=== PATIENT | male | born 1985 | race Caucasian/White ===

== ENCOUNTER 2017-02-14 16:12 | Emergency (ER) | payer OTHER ==
[~2017-02-14] VITALS: Wt 79.4 kg
[~2017-02-14 16:12] MED LIST: AUGMENTIN 875 M1 TAB PO; FLEXERIL10 MG PO; IBU-8800 MG PO; MOTRIN800 MG PO; TRAMADOL HCL50 MG PO; TRIMOX500 MG PO
[2017-02-14 16:46] VITALS: BP 150/78
== END 2017-02-14 20:12 | disposition home or self-care (01) ==
LOC: ED 16:12
DX: S63.91XA Sprain of unspecified part of right wrist and hand, initial encounter (principal); F17.200 Nicotine dependence, unspecified, uncomplicated; Z98.890 Other specified postprocedural states; W01.0XXA Fall on same level from slipping, tripping and stumbling without subsequent striking against object, initial encounter; Y93.89 Activity, other specified; Y92.89 Other specified places as the place of occurrence of the external cause; Y99.9 Unspecified external cause status

== ENCOUNTER 2018-02-24 15:03 | Emergency (ER) | payer OTHER ==
[~2018-02-24] VITALS: Ht 177.8 cm; Wt 84.8 kg
[2018-02-24 15:07] VITALS: BP 137/81
== END 2018-02-24 15:38 | disposition home or self-care (01) ==
LOC: ED 15:03
DX: S93.502A Unspecified sprain of left great toe, initial encounter (principal); W22.8XXA Striking against or struck by other objects, initial encounter; Y93.89 Activity, other specified; Y92.89 Other specified places as the place of occurrence of the external cause; Y99.9 Unspecified external cause status

== ENCOUNTER 2020-03-23 11:29 | Emergency (ER) | payer SELFPAY ==
[~2020-03-23] VITALS: Wt 79.4 kg
[2020-03-23 12:10] VITALS: BP 128/86
[2020-03-23] MEDS ORDERED: NORCO 5-325 TA1 EACH PO (14:39)
[2020-03-23] MEDS ORDERED: IBU800 MG PO (14:39)
== END 2020-03-23 14:48 | disposition home or self-care (01) ==
LOC: ED 11:29
DX: S62.92XA Unspecified fracture of left hand, initial encounter for closed fracture (principal); X58.XXXA Exposure to other specified factors, initial encounter; Y93.89 Activity, other specified; Y92.89 Other specified places as the place of occurrence of the external cause; Y99.8 Other external cause status

== ENCOUNTER 2020-12-02 12:10 | Emergency (ER) | payer OTHER ==
[~2020-12-02] VITALS: Ht 177.8 cm; Wt 81.6 kg
[~2020-12-02 12:10] MED LIST changes: +IBU800 MG PO; +NORCO 5-325 TA1 EACH PO
[2020-12-02 12:17] VITALS: BP 123/79
[2020-12-02] MEDS ORDERED: MEDROL DOSEPAK4 MG PO (14:23)
== END 2020-12-02 14:29 | disposition home or self-care (01) ==
LOC: ED 12:10
DX: R22.41 Localized swelling, mass and lump, right lower limb (principal); F17.200 Nicotine dependence, unspecified, uncomplicated

== ENCOUNTER 2020-12-18 15:00 | Emergency (ER) | payer OTHER ==
[~2020-12-18] VITALS: Ht 177.8 cm; Wt 79.4 kg
[~2020-12-18 15:00] MED LIST changes: +MEDROL DOSEPAK4 MG PO
[2020-12-18 15:06] VITALS: BP 122/82
[2020-12-18] MEDS ORDERED: NAPROXEN250 MG PO (15:36)
[2020-12-18] MEDS ORDERED: TYLENOL325 M1 PO (15:36)
== END 2020-12-18 15:58 | disposition home or self-care (01) ==
LOC: ED 15:00
DX: S90.01XA Contusion of right ankle, initial encounter (principal); J45.909 Unspecified asthma, uncomplicated; R56.9 Unspecified convulsions; Z98.890 Other specified postprocedural states; Z79.899 Other long term (current) drug therapy; W00.9XXA Unspecified fall due to ice and snow, initial encounter; Y93.89 Activity, other specified; Y92.89 Other specified places as the place of occurrence of the external cause; Y99.8 Other external cause status

== ENCOUNTER 2021-10-13 11:23 | Emergency (ER) | payer OTHER ==
[~2021-10-13 11:23] MED LIST changes: +NAPROXEN250 MG PO; +TYLENOL325 M1 PO
[2021-10-13 12:07] VITALS: BP 122/80
== END 2021-10-13 14:39 | disposition home or self-care (01) ==
LOC: ED 11:23
DX: S62.636A Displaced fracture of distal phalanx of right little finger, initial encounter for closed fracture (principal); W51.XXXA Accidental striking against or bumped into by another person, initial encounter; Y93.89 Activity, other specified; Y92.89 Other specified places as the place of occurrence of the external cause; Y99.8 Other external cause status

== ENCOUNTER 2022-09-16 07:53 | Emergency (ER) | payer OTHER ==
[~2022-09-16] VITALS: Ht 177.8 cm; Wt 81.6 kg
[2022-09-16 08:08] VITALS: BP 136/85
[2022-09-16 08:53] LABS: BASO # 0.1 10*3/uL (0.0-0.1); BASO % 0.6 % (0.0-1.0); EOS # 0.2 10*3/uL (0.0-0.4); LYMPH # 1.6 10*3/uL (1.3-4.4); LYMPH % 10.1 % (27.0-41.0); MEAN CELL VOLUME 91.8 fl (80.0-94.0); MEAN CORPUSCULAR HGB 31.9 pg (27.0-31.0); MEAN CORPUSCULAR HGB CONC 34.8 g/dl (33.0-37.0); MEAN PLATELET VOLUME 8.7 fl (9.6-12.3); MONO # 1.2 10*3/uL (0.1-1.0); MONO % 7.6 % (3.0-9.0); NEUT # 12.7 10*3/uL (2.3-7.9); NEUT % 80.4 % (47.0-73.0); PLATELET COUNT AUTOMATED 342 10*3/uL (130-400); RED BLOOD COUNT 5.01 10*6/uL (4.50-5.90); RED CELL DISTRI WIDTH 12.8 % (0-14.5); WHITE BLOOD COUNT 15.8 10*3/uL (4.8-10.8)
[2022-09-16 09:20] LABS: ALKALINE PHOSPHATASE 83 U/L (45-117); BUN 7 mg/dl (7-24); CHLORIDE 106 mmol/L (98-107); CREATININE 0.87 mg/dL (0.70-1.30); POTASSIUM 3.7 mmol/L (3.5-5.1); SGOT/AST 24 IU/L (3-35); SGPT/ALT 45 U/L (12-78); SODIUM 141 mmol/L (136-145); TOTAL PROTEIN 7.4 gm/dL (6.4-8.2)
[2022-09-16] MEDS ORDERED: CLINDAMYCIN HC300 MG PO (13:02)
[2022-09-18] MEDS ORDERED: AUGMENTIN 500500 M1 PO (07:29)
== END 2022-09-16 13:10 | disposition home or self-care (01) ==
LOC: ED 07:53
PROVIDERS: Family Medicine
DX: K02.9 Dental caries, unspecified (principal); F17.200 Nicotine dependence, unspecified, uncomplicated; J45.909 Unspecified asthma, uncomplicated

== ENCOUNTER → 2024-08-12 | Outpatient (CLI) | payer OTHER ==
[~2024-08-12] MED LIST changes: +AUGMENTIN 500500 M1 PO; +CLINDAMYCIN HC300 MG PO
== END | disposition home or self-care (01) ==
LOC: RAD 02:01 → ORTHO 15:08 → RAD 15:40
PROVIDERS: ATTEND Orthopaedic Surgery
DX: S62.91XA Unspecified fracture of right hand, initial encounter for closed fracture (principal); X58.XXXA Exposure to other specified factors, initial encounter; Y93.89 Activity, other specified; Y92.89 Other specified places as the place of occurrence of the external cause; Y99.8 Other external cause status

== ENCOUNTER 2024-09-01 18:33 | Emergency (ER) | payer OTHER ==
[~2024-09-01] VITALS: Ht 172.7 cm; Wt 81.6 kg
[2024-09-01 18:52] VITALS: BP 107/68
== END 2024-09-01 19:32 ==
LOC: ED 18:33
DX: R45.851 Suicidal ideations (principal); F17.210 Nicotine dependence, cigarettes, uncomplicated; Z88.1 Allergy status to other antibiotic agents; Z79.2 Long term (current) use of antibiotics; Z79.899 Other long term (current) drug therapy; Z98.890 Other specified postprocedural states

== ENCOUNTER 2025-02-17 14:13 | Emergency (ER) | payer OTHER ==
[2025-02-17] MEDS ORDERED: Water, Sterile 10 ML VIAL ONE (14:35)
[2025-02-17] MEDS ORDERED: Ziprasidone Mesylate 20 MG VIAL IM ONE ×2 (14:35→15:20)
[2025-02-17 15:30] LABS: BASO # 0.1 10*3/uL (0.0-0.1); BASO % 0.6 % (0.0-1.0); EOS # 0.1 10*3/uL (0.0-0.4); EOS % 0.5 % (1.0-4.0); HEMATOCRIT 50.3 % (42.0-52.0); MEAN CELL VOLUME 91.8 fl (80.0-94.0); MEAN CORPUSCULAR HGB 31.8 pg (27.0-31.0); MEAN CORPUSCULAR HGB CONC 34.6 g/dl (33.0-37.0); MEAN PLATELET VOLUME 8.7 fl (9.6-12.3); MONO # 0.9 10*3/uL (0.1-1.0); MONO % 4.9 % (3.0-9.0); NEUT # 14.5 10*3/uL (2.3-7.9); NEUT % 79.8 % (47.0-73.0); PLATELET COUNT AUTOMATED 363 10*3/uL (130-400); RED BLOOD COUNT 5.48 10*6/uL (4.50-5.90); RED CELL DISTRI WIDTH 13.1 % (0-14.5); WHITE BLOOD COUNT 18.1 10*3/uL (4.8-10.8)
[2025-02-17 15:52] LABS: ALKALINE PHOSPHATASE 74 U/L (46-116); BUN 13 mg/dl (9-23); CHLORIDE 104 mmol/L (98-107); POTASSIUM 3.5 mmol/L (3.4-5.1); SGPT/ALT 25 U/L (5-49); TOTAL PROTEIN 8.3 gm/dL (6.0-8.0)
[2025-02-17 16:09] LABS: ETHYL ALCOHOL 17.3 mg/dl (<3)
[2025-02-17 17:48] LABS: BILIRUBIN Negative (Negative); BLOOD Negative (Negative); CLARITY Clear (Clear); COLOR Yellow (Yellow); GLUCOSE Negative (Negative); KETONE 1+ (Negative); LEUKO ESTERASE Negative (Negative); NITRITE Negative (Negative); PH 5.5 (4.5-8.0); SPECIFIC GRAVITY 1.015 (1.001-1.030)
[2025-02-17 17:54] LABS: URINE AMPHETAMINES Positive (1000ng/ml); URINE BARBITURATES Negative (200ng/ml); URINE BENZODIAZEPINES Negative (200ng/ml); URINE CANNABINOIDS (THC) Positive (50ng/ml); URINE COCAINE Negative (300ng/ml); URINE METHADONE Negative (300ng/ml); URINE OPIATES Negative (300ng/ml); URINE PHENCYCLIDINE Negative (25ng/ml)
[2025-02-17 18:02] LABS: BACTERIA TRACE
== END 2025-02-17 20:45 ==
LOC: ED 14:13
PROVIDERS: Emergency Medicine
DX: F43.21 Adjustment disorder with depressed mood (principal); J45.909 Unspecified asthma, uncomplicated; F17.210 Nicotine dependence, cigarettes, uncomplicated; Z88.1 Allergy status to other antibiotic agents; Z79.899 Other long term (current) drug therapy; Z98.890 Other specified postprocedural states

== ENCOUNTER 2025-03-04 13:03 | Emergency (ER) | payer OTHER ==
[2025-03-04 13:14] VITALS: BP 114/72
[2025-03-04] MEDS ORDERED: NAPROSYN500 MG PO (18:07)
== END 2025-03-04 18:09 | disposition home or self-care (01) ==
LOC: ED 13:03
DX: S86.811A Strain of other muscle(s) and tendon(s) at lower leg level, right leg, initial encounter (principal); J45.909 Unspecified asthma, uncomplicated; F17.200 Nicotine dependence, unspecified, uncomplicated; Z79.899 Other long term (current) drug therapy; Z88.1 Allergy status to other antibiotic agents; X58.XXXA Exposure to other specified factors, initial encounter; Y93.89 Activity, other specified; Y92.89 Other specified places as the place of occurrence of the external cause; Y99.8 Other external cause status

== ENCOUNTER 2025-10-19 16:48 | Emergency (ER) | payer OTHER ==
[~2025-10-19] VITALS: Ht 177.8 cm; Wt 83.9 kg
[~2025-10-19 16:48] MED LIST changes: +NAPROSYN500 MG PO
[2025-10-19 16:56] VITALS: BP 155/99
[2025-10-19] MEDS ORDERED: SODIUM CHLORIDE 0.9% 1,000 ML IV ONE (17:25)
[2025-10-19] MEDS ORDERED: Metoclopramide Hydrochloride 10 MG/2 ML VIAL IV ONE (17:25)
[2025-10-19] MEDS ORDERED: Bacitracin Zinc 14 GM TUBE T ONE (17:30)
[2025-10-19] MEDS ORDERED: Lidocaine Hydrochloride 5 ML AMP SC ONE (17:30)
[2025-10-19] MEDS ORDERED: Tdap Vaccine 0.5 ML SYR (Adult Vaccine) IM ONE (17:30)
[2025-10-19] MEDS ORDERED: CLINDAMYCIN HCL 300 MG CAPSULE PO ONE (17:30)
[2025-10-19 17:43] LABS: BASO # 0.1 10*3/uL (0.0-0.1); BASO % 0.8 % (0.0-1.0); EOS # 0.2 10*3/uL (0.0-0.4); EOS % 1.9 % (1.0-4.0); MEAN CELL VOLUME 92.0 fl (80.0-94.0); MEAN CORPUSCULAR HGB 31.0 pg (27.0-31.0); MEAN PLATELET VOLUME 8.5 fl (9.6-12.3); MONO # 1.1 10*3/uL (0.1-1.0); MONO % 8.6 % (3.0-9.0); NEUT # 7.4 10*3/uL (2.3-7.9); NEUT % 59.7 % (47.0-73.0); NUCLEATED RED BLOOD CELL 0.0 % (0.0-0.0); NUCLEATED RED BLOOD CELL 0.0 10*3/uL (0.0-0.0); PLATELET COUNT AUTOMATED 330 10*3/uL (130-400); RED CELL DISTRI WIDTH 13.1 % (0-14.5)
[2025-10-19 18:01] LABS: BUN 10 mg/dl (9-23); SGPT/ALT 24 U/L (5-49)
[2025-10-19] MEDS ORDERED: Lidocaine Hydrochloride 2% 10 ML AMP SC ONE (20:10)
[2025-10-20] MEDS ORDERED: CLEOCIN HCL300 MG PO (00:15)
== END 2025-10-19 22:19 | disposition home or self-care (01) ==
LOC: ED 16:48
PROVIDERS: Nurse Practitioner
DX: S41.112A Laceration without foreign body of left upper arm, initial encounter (principal); J45.909 Unspecified asthma, uncomplicated; F17.290 Nicotine dependence, other tobacco product, uncomplicated; Z88.1 Allergy status to other antibiotic agents; X58.XXXA Exposure to other specified factors, initial encounter; Y93.89 Activity, other specified; Y92.89 Other specified places as the place of occurrence of the external cause; Y99.8 Other external cause status